=== PATIENT | male | born 1975 | race African-American/Black ===

== ENCOUNTER 2024-03-20 19:17 | Emergency (ER) | payer MEDICARE, MEDICAID, SELFPAY ==
[2024-03-20 19:21] VITALS: BP 146/99; PULSE 118; RESP 20; TEMP 39.3; O2SAT 97
--- NOTE | 2024-03-20 20:03 | EKG_ITS ---
[facility] Test Date: 2024-03-20 Pat Name: LUIS EDUARDO LOFTON Department: Room: - Gender: Male Child Welfare Specialist: : [id number] Requested By: Breana Morrissey Order Number: [id number] Reading MD: Breana Morrissey Measurements Intervals [place] Rate: 127 P: 66 SC: 110 QRS: -1 QRSD: 72 T: -15 QT: 263 QTc: 382 Interpretive Statements SINUS TACHYCARDIA WITH SHORT SC INTERVAL LOW QRS VOLTAGE IN EXTREMITY LEADS [QRS DEFLECTION < 0.5 mV IN LIMB LEADS] SEPTAL MYOCARDIAL INFARCTION , OF INDETERMINATE AGE [40+ ms Q WAVE IN V1/V2] Compared to ECG 04/17/2022 15:47:58 Low QRS voltage now present Myocardial infarct finding now present /store/S0/[id number].pdf
--- NOTE | 2024-03-20 20:05 | XR_ITS ---
Examination: AP chest single view TECHNIQUE: AP portable semiupright chest single view Exam date and time: March 20, 2024, 9:27 PM INDICATIONS: Shortness of breath today. FINDINGS: Normal heart size Mild vascular congestion. No lobar pneumonia. Prominent osteopenia. Thoracic lumbar orthopedic support rods IMPRESSION: Mild vascular congestion.
--- NOTE | 2024-03-20 20:07 | EDNOTE_ITS ---
ED SOB =RME/HPI General Chief Complaint: Shortness of Breath/Dyspnea Stated Complaint: SHORTNESS OF BREATH Time Seen by Provider: 03/20/24 19:20 Arrival date/time: 03/20/24 19:17 RME / HPI RME / HPI Narrative: Patient is a 49-year-old male with past medical history of cerebral palsy, nonverbal, bedbound, spastic quadriplegia, asthma, constipation, GERD, and dysphagia s/p G-tube who was brought from [facility]dc due to diaphoresis, congestion, apparent shortness of breath, and 2 episodes of nonbloody, nonbilious vomiting today noted by caregivers. Patient was placed on 2L nasal cannula which is used as needed. There was no reported fever but initial vitals taken in ED showed temp 102.8. Patient is otherwise at his baseline mental status, history is unobtainable from the patient. Related Data Home Medications ?Medication ?Instructions ?Recorded ?Confirmed albuterol sulfate 2.5 mg/3 mL 2.5 mg inhalation QDAY 1 04/20/22 (0.083 %) solution for nebulization chlorhexidine gluconate 0.12 % 0.12 ea PO TID 12/11/21 04/20/22 mouthwash diphenhydramine HCl 25 mg capsule 25 mg feeding tube Q PM 12/11/21 04/20/22 (Benadryl) docusate sodium 50 mg/5 mL oral 100 mg feeding tube BI D 12/11/21 04/20/22 liquid montelukast 10 mg tablet 10 mg feeding tube HS 04/20/22 (Singulair) multivitamin with minerals 1 tab PO QDAY 12/11/21 03/08/07 polyethylene glycol 3350 17 gram 17 g feeding tube QDA Y 12/11/21 04/20/22 oral powder packet (Miralax) bisacodyl 10 mg rectal suppository 10 mg SD QDAY PRN C onstipation 02/17/22 04/20/22 famotidine 40 mg tablet 40 mg feeding tube HS 04/20/22 magnesium hydroxide 400 mg/5 mL 400 mg PO PRN PRN Cons tipation 02/17/22 04/20/22 oral suspension (Milk of Magnesia) neomycin-bacitracn Zn-polymyxn 3.5 1 applic topical BI D 02/17/22 04/20/22 mg-400 unit-5,000 unit top oint pkt (Triple Antibiotic) dextromethorphan 5 mg-guaifenesin 5 ml PO Q6HR PRN Cou gh 04/20/22 04/20/22 50 mg/5 mL oral liquid (Robafen DM) Previous Rx's ?Medication ?Instructions ?Recorded metoclopramide HCl 5 mg/5 mL oral 5 mg (5 mL) feeding tube TID 30 01/13/22 solution days #1,000 mL pantoprazole 40 mg tablet,delayed 40 mg PO BID via G-t ube 30 days 01/13/22 release #60 tabs amoxicillin 500 mg capsule 500 mg PO Q8H sinusitis 5 d ays #15 03/21/24 caps Allergies Allergy/AdvReac Type Severity Reaction Status Date / Time blueberry Allergy Unknown Rash Verified 04/17/22 15:41 Cressona And Derivatives Allergy Unknown Verified 04/17/22 15:41 Milk Containing Products Allergy Unknown Verified 04/17/22 15:41 (Dairy) (Milk Containing Products) adhesive tape Allergy Verified 04/17/22 15:41 Past Medical History Past Medical History Comments PMH COMMENT: Past Medical History: Cerebral palsy, nonverbal, bedbound, spastic quadriplegia, asthma, constipation, GERD, and dysphagia s/p G-tube Family History: Unknown Surgical History: G-tube Social History: No history of smoking, denies current alcohol use, denies recreational drug use Current Medications: pantoprazole 40 mg BID, metoclopramide 5 mg TID, famotidine 40 mg HS, almacone susp 200-20 prn, singulair 10 mg HS, albuterol 2.5/3ml prn, Robafen DM 5 ml q6h prn, Benadryl 10 mg HS, Miralax 17 gm qday, docusate 100 mg BID, milk of magnesia 30 ml prn, bisacodyl supp 10 mg prn, acetaminophen 325 mg prn, multivitamin (Source: [facility] home medication list) Tube Feed: Compleat standard 1.4 q4h at 8 oz per feeding, followed by 30 ml free water each feeding. Additional free water flush 120 ml q6h. Allergies: Blueberry, citrus products, milk products ED Exam Narrative Physical exam: Physical Exam General: Nonverbal patient bedbound at baseline mental status, spontaneously opens eyes, localizes gaze. HEENT: Normocephalic, atraumatic, mucous membranes moist. Heart: Tachycardic rate and regular rhythm, no murmurs. Lungs: Clear to auscultation with no wheezing or crackles. Transmitted wet upper respiratory sounds. Abdomen: Soft, nondistended, nontender, positive bowel sounds. ?No guarding or rebound tenderness. G-tube in place without surrounding drainage or erythema. Neurologic: Spastic quadriplegia, chronically contracted extremities. Extremities: No edema. Skin: No rash or ecchymoses. Course Course Course Narrative: 20:15 Dr. Morrissey evaluated patient in ambulance bay, received EMS report 20:30 Sepsis alert called - Temp 102.8 and HR 118, source likely pulmonary. Sepsis lab bundle ordered, 1L NS bolus, IV acetaminophen. 21:16 WBC 13.4, lactic acid 2.5. Orders placed for ceftriaxone 1g IV. 23:35 Patient re-examined. Sleeping, in no acute distress, appears improved. HR 90s and RR 19. Pending XRs and UA. Caregiver at the bedside, states patient is looking much better. 00:08 Reviewed XRs on portable due to system being down. CXR - mild upper lobe infiltrates, possible bronchitis pattern according to my interpretation. KUB - showing gas and stool. 00:41 3-hour lactic acid follow up is normal, 1.3. 00:53 Called lab as the UA is not back. The crime laboratory analyst had issues with [employer] and was unable to upload results. 02:30 Called lab again as UA result is still not uploaded. UA is negative for UTI. As all patient's vitals have improved, he is stable for discharge home. Sent prescription for amoxicillin 500 mg q8h for 5 days for acute sinusitis/bronchitis. Quality Measures Current suspected stage: sepsis Possible source: pulmonary Blood cultures ordered: yes Antibiotic ordered: Yes Pertinent labs: 03/20/24 03/20/24 03/20/24 00:14 20:50 22:04 Lactic Acid Cancelled 2.5 H mMol/L (0.4-2.0) Procalcitonin 2.31 H ng/ml (0.0-0.49) 03/21/24 00:14 Lactic Acid 1.3 mMol/L (0.4-2.0) Procalcitonin sepsis Orders Category Date Time Status Bedside COVID-19 Antigen Test NOW Care 03/20/24 21:19 Completed Bedside Influenza A&B Antigen Test NOW Care 03/20/24 21:19 Completed Chief Payroll Clerk STAT Care 03/20/24 20:39 Completed Continuous Pulse Oximetry STAT Care 03/20/24 20:39 Completed EKG (ED ONLY) *Do not use* NOW Care 03/20/24 20:03 Completed [place] [Urinary Catheter] QS Care 03/20/24 20:54 Completed Insert IV NOW Care 03/20/24 20:39 Completed NPO STAT Care 03/20/24 20:39 Completed Strict Intake and Output Routine Care 03/20/24 20:39 Ordered CXRP [XR chest 1V portable] Stat Exams 03/20/24 20:05 Completed EKG (ED Only) Stat Exams 03/20/24 20:03 Draft KUB [XR abdomen 1V] Stat Exams 03/20/24 20:08 Completed Blood Culture (Lab) Stat Lab 03/20/24 20:50 Results CBC Stat Lab 03/20/24 20:50 Completed CMP [Comprehensive Metabolic Panel] Stat Lab 03/20/24 22:04 Completed Lactate (Lactic Acid) Routine Lab 03/21/24 00:14 Completed Lactic Acid [Lactate (Lactic Acid)] Stat Lab 03/20/24 20:50 Completed Magnesium Stat Lab 03/20/24 22:04 Completed Partial Thromboplastin Time Stat Lab 03/20/24 20:50 Completed Phosphorous Stat Lab 03/20/24 22:04 Completed Procalcitonin Stat Lab 03/20/24 22:04 Completed Prothrombin Time with INR Stat Lab 03/20/24 20:50 Completed Urinalysis, C/S if Indicated Stat Lab 03/20/24 20:46 Completed Urine Culture Stat Lab 03/20/24 20:46 Completed ALBUTEROL RT 3ml [Proventil Rt 3ml] Med 03/20/24 21:21 Discontinued 2.5 mg INH Q4H PRN Acetaminophen Ivpb [Ofirmev Inj] Med 03/20/24 20:36 Discontinued 1,000 mg in 100 ml IV Q6HR Acetaminophen Supp [Tylenol Supp] Med 03/20/24 20:30 Discontinued 650 mg SD X1 ONE Ringers Lactated 1000 ml [Lactated Ringers] 1,000 ml Med 03/20/24 20:37 Discontinued IV 999 mls/hr Sodium Chloride 0.9% 1000 ml [Ns] 1,000 ml Med 03/20/24 21:00 Discontinued IV 999 mls/hr cefTRIAXone [Rocephin] 1,000 mg Med 03/20/24 21:15 Discontinued Sodium Chloride 0.9% [Ns] 50 ml IV X1 Oxygen Delivery PRN RT 03/20/24 20:39 Completed Vital Signs Vital signs: Vital Signs Temperature 102.8 F H 03/20/24 19:21 Pulse Rate 118 H 03/20/24 19:21 Respiratory Rate 20 03/20/24 19:21 Blood Pressure 146/99 H 03/20/24 19:21 Pulse Oximetry (%) 97 03/20/24 19:21 Oxygen Delivery Method Room Air 03/20/24 19:21 Shortness of Breath / Dyspnea MDM Narrative MDM Narrative:: Given the CXR is clear of pneumonia, UA is negative, the patient is on room air, and he is appearing more comfortable after receiving IV fluids, IV acetaminophen, and IV ceftriaxone, will discharge the patient back to fdc with a 5-day course of amoxicillin to be administered through GT. Patient data External records reviewed:: [facility] previous records, EMS form and [facility] records Clinical information provided by:: EMS Social determinants that could affect healthcare access:: none Patient has the following chronic illnesses:: As above How is presenting disease/condition affected by chronic disease/condition?: exacerbated by Evaluation data The following diagnostics were reviewed and interpreted by me:: lab results, radiology exam(s) and EKG tracing(s) Lab and/or radiology exams considered but not ordered:: None Interpretation Summary: 20:21 EKG interpreted by me, sinus tachycardia 127. Poor tracing due to continual patient motion. Medications / Prescriptions Medications or Prescriptions considered but not ordered:: . Medication administrations:: Medication Administration History Discontinued Medications Acetaminophen (Acetaminophen Supp 650 Mg Supp) 650 mg SD X1 ONE Stop: 03/20/24 20:31 Last Admin: 03/20/24 21:08 Dose: Not Given Documented By: SF Non-Admin Reason: Discontinued Albuterol (Albuterol Rt 2.5 Mg/3 Ml Nebu) 2.5 mg INH Q4H PRN PRN Reason: SHORTNESS OF BREATH OR WHEEZE Stop: 04/19/24 21:20 Acetaminophen (Ofirmev Inj) 1,000 mg in 100 mls @ 250 mls/hr IV Q6HR [id number] Stop: 03/21/24 12:23 Last Infusion: 03/20/24 21:40 Dose: Infused Documented By: Admin: 03/20/24 21:10 Dose: 250 mls/hr Documented By: GB Lactated Ringer's (Lactated Ringers) 1,000 mls @ 999 mls/hr IV .Q1H1M ONE Stop: 03/20/24 21:37 Last Admin: 03/20/24 21:08 Dose: Not Given Documented By: SF Non-Admin Reason: Discontinued Sodium Chloride (Ns) 1,000 mls @ 999 mls/hr IV .Q1H1M ONE Stop: 03/20/24 22:00 Last Infusion: 03/20/24 22:03 Dose: Infused Documented By: Admin: 03/20/24 21:02 Dose: 999 mls/hr Documented By: EF Ceftriaxone Sodium 1,000 mg/ (Sodium Chloride) 50 mls @ 100 mls/hr IV X1 ONE Stop: 03/20/24 21:44 Last Infusion: 03/20/24 22:11 Dose: Infused Documented By: Admin: 03/20/24 21:41 Dose: 100 mls/hr Documented By: EF ^ Consultations Consultation(s) initiated? (list below): No Diagnosis Shortness of Breath Differential Diagnosis: community acquired pneumonia, asthma with exacerbation and other (aspiration pneumonia) Most likely diagnosis given after review of the tests above:: Likely pneumonia Admission Indicated Admission indicated?: not indicated Explain why admission is indicated or not indicated:: Improved after treatment in ED Admission Request Was there a request for admission?: No Disposition Plan Disposition Plan: Discharge Discharge Attestation Discharge Attestation: The patient and all family members were given an opportunity to ask questions and understood the discharge instructions. Discharge instructions specifically effects, indications for sooner follow up or return to the emergency department, and the expected course of current diagnosis. Patient condition: Stable Discharge Plan Plan Patient Disposition: HOME (Self Care) Patient condition on transfer: Stable Prescriptions/Referrals Prescriptions/Med Rec: New amoxicillin 500 mg capsule 500 mg PO Q8H MDD 1500 5 Days Qty: 15 0RF No Action metoclopramide HCl 5 mg/5 mL solution 5 mg feeding tube TID 30 Days Qty: 1000 3RF pantoprazole 40 mg tablet,delayed release (DR/EC) 40 mg PO BID 30 Days Qty: 60 2RF famotidine 40 mg tablet 40 mg feeding tube HS magnesium hydroxide [Milk of Magnesia] 400 mg/5 mL Suspension 400 mg PO PRN PRN (Reason: Constipation) bisacodyl 10 mg Suppository 10 mg SD QDAY PRN (Reason: Constipation) Triple Antibiotic 3.5-400-5,000 [id number] Ointment In Packet 1 applic TOPICAL BID Robafen DM 5-50 mg/5 mL Liquid 5 ml PO Q6HR PRN (Reason: Cough) docusate sodium 50 mg/5 mL Liquid 100 mg feeding tube BID albuterol sulfate 2.5 mg /3 mL (0.083 %) Solution For Nebulization 2.5 mg inhalation QDAY polyethylene glycol 3350 [Miralax] 17 gram Powder In Packet 17 g feeding tube QDAY diphenhydramine HCl [Benadryl] 25 mg Capsule 25 mg feeding tube QPM montelukast [Singulair] 10 mg Tablet 10 mg feeding tube HS multivitamin with minerals Tablet 1 tab PO QDAY chlorhexidine gluconate 0.12 % mouthwash 0.12 ea PO TID Referrals: Erick Freed MD [Primary Care Provider] - In 1 week Problem List Clinical Impression: Acute upper respiratory infection, Sinusitis Patient/Caregiver Discharge Instructions Education Materials: Preventing Sinusitis, Preventing Common Respiratory ..., ED URI, Viral W/ Wheezing (Adult), ED Pharyngitis, Viral Additional Instructions: Preston Thomas was diagnosed today with an upper respiratory infection and po ssible sinusitis. Tests completed today include COVID-19 and Influenza A & B, which were negative. Chest X-ray showed no pneumonia but possible upper lung congestion. Abdomen X-ray was normal. He was treated with IV Tylenol and an IV antibiotic while in the ED. Preston should complete 5 more days of the following antibiotic, amoxicillin, to be taken every 8 hours. Tylenol can be used as needed for fevers. Follow up with PCP within 1 week of discharge. Continue rest of medications as previously prescribed. Return to the ED or call EMS if symptoms return and/or worsen. Print Language: Nauruan Stand Alone Forms: [email or web address] Award Info., Patient Portal Info Letter MD Attestation MD Attestation I was present for the pertinent elements of the history and physical exam, discussion of the treatment plan and reviewed the chart and agree.
--- NOTE | 2024-03-20 20:08 | XR_ITS ---
Examination: Abdomen AP single view Technique: AP portable supine abdomen, single view Exam date and time: March 20, 2024, 9:21 PM INDICATIONS: Vomiting episodes today. FINDINGS: Air distended right colon Small bowel ileus No free air No definite obstruction Severe osteopenia with thoracolumbar orthopedic support rods IMPRESSION: Air distended right colon Small bowel ileus
[2024-03-20 20:25] VITALS: PULSE 106; RESP 19; O2SAT 98
[2024-03-20 20:32] VITALS: BP 163/92; PULSE 122; RESP 23; TEMP 39.8; O2SAT 95
[2024-03-20 20:46] VITALS: BMI 17.6
[2024-03-20 20:52] VITALS: PULSE 116
[2024-03-20] MEDS: SODIUM CHLORIDE 0.9% 1000 ML 1,000 ML 999 ML IV (21:02)
[2024-03-20 21:03] LABS: Lactate (Lactic Acid) 2.5 mMol/L (0.4-2.0)
[2024-03-20] MEDS: ACETAMINOPHEN IVPB 1,000 MG/100 ML VIAL 250 MG IV (21:10)
[2024-03-20 21:12] LABS: Basophils # (Auto) 0.1 Thou/mm3 (0.0-0.2); Basophils % (Auto) 0 % (0-2.5); Eosinophils % (Auto) 0 % (0-10); Hematocrit 48.2 % (41.0-53.0); Hemoglobin 16.7 g/dL (13.5-16.0); Immature Granulocytes % (Auto) 0 % (0-0); Immature Granulocytes Auto 0.05 Thou/mm3 (0.00-0.00); Lymphocytes # (Auto) 0.7 Thou/mm3 (1.0-4.8); Lymphocytes % (Auto) 5 % (10-50); Mean Corpuscular HGB Conc 34.6 g/dl (31.0-37.0); Mean Corpuscular Hemoglobin 35.4 pg (25.0-35.0); Mean Corpuscular Volume 102 fL (80-100); Monocytes # (Auto) 0.7 Thou/mm3 (0.0-0.8); Monocytes % (Auto) 6 % (0-12); Neutrophils # (Auto) 11.8 Thou/mm3 (1.8-7.7); Neutrophils % (Auto) 88 % (37-80); Nucleated Red Blood Cell % 0 /100 WBC (0); Platelet Count 134 Thou/mm3 (140-440); RDW Standard Deviation 44.6 fL (35.1-43.9); Red Blood Count 4.72 Miln/mm3 (4.50-5.90); White Blood Count 13.4 Thou/mm3 (3.8-10.6)
[2024-03-20 21:13] VITALS: PULSE 110; RESP 20; O2SAT 96
[2024-03-20 21:23] LABS: Collection Type, Urine Catheter
[2024-03-20 22:17] VITALS: BP 137/105; PULSE 120; RESP 21; TEMP 37.7; O2SAT 99
[2024-03-20 22:50] LABS: Alanine Aminotransferase 15 U/L (10-49); Albumin, Serum 3.9 gm/dL (3.5-5.0); Albumin/Globulin Ratio 1.3 (1.2-2.2); Alkaline Phosphatase 61 U/L (46-116); Anion Gap 9 (7-16); Aspartate Amino Transferase 24 U/L (0-34); BUN/Creatinine Ratio 18 Ratio (12-20); Bilirubin,Total 0.9 mg/dL (0.3-1.2); Blood Urea Nitrogen 11 mg/dL (9-23); Calcium 8.5 mg/dL (8.3-10.6); Calcium (Corrected) 8.6 mg/dL (8.5-10.1); Carbon Dioxide 25.8 mMol/L (20.0-31.0); Chloride 103 mMol/L (98-107); Creatinine (Component) 0.6 mg/dL (0.6-1.3); Estimated Creatinine Clearance 75.5 mL/min (>60); Globulin 3.1 gm/dL (2.3-3.5); Glucose 96 mg/dL (74-106); Magnesium 1.4 mg/dL (1.6-2.6); Osmolality,Calculated 275 (275-295); Phosphorous 2.7 mg/dL (2.4-5.1); Potassium 4.3 mMol/L (3.4-5.1); Sodium 138 mMol/L (136-145); eGFR > 60 See Note
[2024-03-20 22:51] LABS: Procalcitonin 2.31 ng/ml (0.0-0.49)
[2024-03-20 23:59] LABS: Reflex Lactate? Y
[2024-03-21 01:23] VITALS: BP 97/54; PULSE 81; RESP 18; TEMP 37.1; O2SAT 100
[2024-03-21 01:37] LABS: Bilirubin,Urine Negative (Negative); Blood,Urine Negative (Negative); Clarity,Urine Turbid (Clear/Hazy); Color,Urine Yellow (Lt Yel-Yel); Culture Indicated,Urine Not Indicated; Glucose, Urine Negative (Negative); Hyaline Casts,Urine < 1 /hpf (0-1); Ketones,Urine 3+ (Negative); Leukocyte Esterase,Urine Negative (Negative); Nitrite,Urine Negative (Negative); PH,Urine 6.5 (5.0-7.0); Protein,Urine 1+ (Neg - Trace); RBC,Urine 7 /hpf (0-3); Specific Gravity,Urine 1.028 (1.001-1.035); Squamous Epithelial Cell,Urine < 1 /hpf (0-5); Urobilinogen,Urine Negative mg/dL (0.0-1.0); WBC,Urine 3 /hpf (0-5)
[2024-03-21 03:02] VITALS: BP 139/82; PULSE 95; RESP 17; TEMP 37.1; O2SAT 96
--- NOTE | 2024-03-21 03:11 | PC.NURSE ---
report called via telephone to bran mata from [facility]
[2024-03-21 03:23] LABS: Lactate (Lactic Acid) 1.3 mMol/L (0.4-2.0)
[2024-03-21 03:38] LABS: INR 1.1 (0.9-1.3); Partial Thromboplastin Time 25.6 Seconds (22.0-36.0); Prothrombin Time 12.4 Seconds (9.0-12.2)
[2024-03-21 04:18] VITALS: BP 119/77; PULSE 86; RESP 16; O2SAT 99
== END 2024-03-21 04:26 | disposition home or self-care (01) ==
PROVIDERS: Student in an Organized Health Care Education/Training Program; Emergency Provider Emergency Medicine; PCP Hospitalist
DX: J06.9 Acute upper respiratory infection, unspecified (principal); J32.9 Chronic sinusitis, unspecified; J45.909 Unspecified asthma, uncomplicated; K21.9 Gastro-esophageal reflux disease without esophagitis; G80.0 Spastic quadriplegic cerebral palsy; Z74.01 Bed confinement status; Z93.1 Gastrostomy status
CPT/HCPCS: 51702; 36415; 71045; 74018; 80053; 81001; 83605; 83735; 84100; 84145; 85025; 85610; 85730; 87040; 87086; 87400; 87811; 93005; 96365; 96367; 99284; J0131; J0696; J7030